=== PATIENT | female | born 1950 | race Caucasian/White ===

== ENCOUNTER 2016-08-07 01:41 | Emergency (ER) | payer MEDICARE, OTHER ==
[~2016-08-07] VITALS: Ht 170.2 cm; Wt 53.5 kg
[~2016-08-07 01:41] MED LIST: CIPR500T87 PO; GUAI400T26 PO; IPRA4AER INH
[2016-08-07 01:44] VITALS: BP 107/62
[2016-08-07] MEDS ORDERED: PROPARACAINE OPHTH 0.5%, 15ML EACHEYE ONE (02:30)
[2016-08-07] MEDS ORDERED: FLUORESCEIN OPHTHALMIC 1 MG STRIP EACHEYE ONE (02:30)
[2016-08-07] MEDS ORDERED: PROPARACAINE OPHTH 0.5%, 15ML ONE (02:46)
[2016-08-07] MEDS ORDERED: FLUORESCEIN OPHTHALMIC 1 MG STRIP ONE (02:46)
== END 2016-08-07 04:16 | disposition home or self-care (01) ==
LOC: ED 04:10
DX: H53.131 Sudden visual loss, right eye (principal); H53.121 Transient visual loss, right eye
CPT/HCPCS: 99282

== ENCOUNTER 2017-01-02 13:19 | Emergency (ER) | payer SELFPAY ==
[~2017-01-02] VITALS: Ht 170.2 cm; Wt 56.0 kg
[~2017-01-02 13:19] MED LIST changes: -GUAI400T26 PO; +GUAI400T66 PO
[2017-01-02] MEDS ORDERED: HYDROmorphone 1 MG/ML, 1ML IM ONE (14:00)
[2017-01-02 14:07] LABS: HEMATOCRIT 42.8 % (34.6-47.8); HEMOGLOBIN 14.5 g/dL (11.7-16.4); WHITE BLOOD COUNT 8.2 x10^3/uL (3.4-10)
[2017-01-02] MEDS ORDERED: HYDROmorphone 1 MG/ML, 1ML ONE (14:09)
[2017-01-02 14:20] LABS: BLOOD UREA NITROGEN 18 mg/dL (7-18); C-REACTIVE PROTEIN, QUANT 0.16 mg/dL (0.02-0.49)
[2017-01-02] MEDS ORDERED: CEPHALEXIN 500 MG CAPSULE PO STA (14:40)
[2017-01-02] MEDS ORDERED: SULFAMETH./TRIMETHOPRIM DS 800MG/160MG TABLET ONE (14:56)
[2017-01-02] MEDS ORDERED: CEPHALEXIN 500 MG CAPSULE ONE (14:56)
[2017-01-02] MEDS ORDERED: SULFAMETH./TRIMETHOPRIM DS 800MG/160MG TABLET PO ONE (15:00)
[2017-01-02 15:15] VITALS: BP 146/74
[2017-01-02] MEDS ORDERED: DIPH,PERTUSS(ACELL),TET VAC/PF 0.5 ML IM-VACC ONE ×2 (15:25→15:30)
== END 2017-01-02 15:50 | disposition home or self-care (01) ==
LOC: ED 15:30
DX: L03.011 Cellulitis of right finger (principal)
CPT/HCPCS: 36415; 73130; 80048; 82040; 85025; 86140; 90471; 90715; 96372; 99285; J1170